=== PATIENT | female | born 1970 ===

== ENCOUNTER 2024-04-13 09:15 | Inpatient (IN) | payer OTHER ==
[~2024-04-13] VITALS: Ht 175.3 cm; Wt 76.7 kg
[2024-04-13 09:48] LABS: PH,URINE 5.5 (5.0-8.0); URINE APPEARANCE Clear; URINE BILIRRUBIN Negative (NEGATIVE); URINE BLOOD Negative; URINE COLOR Yellow; URINE GLUCOSE Negative (NEGATIVE); URINE KETONE Negative (NEGATIVE); URINE LEUKOCYTE Negative; URINE NITRATE Negative; URINE PROTEIN Negative (NEGATIVE); URINE UROBILINOGEN 0.2 E.U./dl
[2024-04-13 09:51] LABS: HEMATOCRIT 37.4 % (36.0-45.00); HEMOGLOBIN 12.5 g/dL (12.0-15.00); MEAN CORPUSCULAR HGB CONC 33.3 g/dl (32.0-36.0); PLATELET COUNT 229 K/uL (150-450); RED CELL DISTRIBUTION WIDTH 14.8 % (11.5-14.5)
[2024-04-13 09:52] LABS: URINE BACTERIA 7.5 uL (0.0-1933); URINE EPITHELIAL CELLS 10.6 uL (0.0-38.8); URINE RBC 6.7 uL (0.0-20.8); URINE WBC 2.7 uL (0.0-23.2)
[2024-04-13] MEDS ORDERED: ROSUVASTATIN CA10 MG PO (10:00)
[2024-04-13 10:49] LABS: PROTHROMBIN TIME 10.9 SECONDS (9.0-11.5)
[2024-04-13 11:17] LABS: BILIRUBIN TOTAL 0.42 mg/dL (0.3-1.2); CALCIUM 9.4 mg/dL (8.5-10.1); CREATININE SERUM 0.76 mg/dL (0.55-1.02); GFR 80.23; GLOBULINA 3.2 G/DL (2.4-3.5); POTASSIUM 5.14 mEq/L (3.5-5.1); TOTAL PROTEIN 7.2 gm/dL (6.4-8.2)
[2024-04-17] MEDS ORDERED: CEFAZOLIN SODIUM 1,000 MG VIAL ONE (12:33)
[2024-04-17] MEDS ORDERED: POVIDONE-IODINE 118 ML BOTT TOP ONE (14:00)
[2024-04-17] MEDS ORDERED: VISTASEAL DUAL APPICATOR 1 EACH APPL TOP ONE (17:38)
[2024-04-17] MEDS ORDERED: THROMBIN,HU/FIBRINOGEN/CALCIUM 10 ML SYRINGE TOP ONE (17:38)
[2024-04-17] MEDS ORDERED: SUGAMMADEX SODIUM 200 MG/2 ML VIAL IV ONE (17:38)
[2024-04-17] MEDS ORDERED: RINGERS SOLUTION,LACTATED 1,000 ML IV SCH (18:30)
[2024-04-17] MEDS ORDERED: MORPHINE SULFATE 4 MG/ML VIAL IV PRN (18:30)
[2024-04-17] MEDS ORDERED: ONDANSETRON HCL 2 MG/ML VIAL IV PRN (18:30)
[2024-04-17] MEDS ORDERED: OxyCODONE HCL/APAP UD (PERCOCET) PO PRN (18:45)
[2024-04-17] MEDS ORDERED: KETOROLAC TROMETHAMINE 30 MG VIAL IV SCH (18:45)
[2024-04-17] MEDS ORDERED: MORPHINE SULFATE 4 MG/ML VIAL IV ONE (20:15)
[2024-04-17 22:43] VITALS: BP 108/72
[2024-04-18] VITALS: BP 107/68
[2024-04-18 08:00] VITALS: BP 92/60
[2024-04-18 08:40] LABS: HEMATOCRIT 30.3 % (36.0-45.00); MEAN CELL VOLUME 78.4 fL (80.00-100.00); MEAN CORPUSCULAR HEMOGLOBIN 25.9 pg (27.00-32.0); MEAN CORPUSCULAR HGB CONC 33.1 g/dl (32.0-36.0); PLATELET COUNT 171 K/uL (150-450); RED BLOOD COUNT 3.86 M/uL (4.00-6.00); RED CELL DISTRIBUTION WIDTH 14.8 % (11.5-14.5)
[2024-04-18 20:55] VITALS: BP 112/71
== END 2024-04-18 16:36 | disposition home or self-care (01) | DRG 743 ==
LOC: O/R 04-17 07:51 → SURH 04-17 09:15 → OB/GYN 04-17 19:21
PROVIDERS: ADMIT Obstetrics & Gynecology; ATTEND Obstetrics & Gynecology
PROC: 0UT74ZZ Resection of Bilateral Fallopian Tubes, Percutaneous Endoscopic Approach (ICD-10-PCS; 2024-04-17)
PROC: 0UT94ZZ Resection of Uterus, Percutaneous Endoscopic Approach (ICD-10-PCS; principal; 2024-04-17 10:15)
DX: D25.9 Leiomyoma of uterus, unspecified (principal); N80.03 Adenomyosis of the uterus; Z20.822 Contact with and (suspected) exposure to COVID-19